=== PATIENT | female | born 1955 | race African-American/Black ===

== ENCOUNTER 2016-10-22 16:04 | Inpatient (IN) | payer MEDICARE, MEDICAID ==
[~2016-10-22] VITALS: Ht 157.5 cm; Wt 68.1 kg
[~2016-10-22 16:04] MED LIST: ACET-784 PO; ALBU6.7H IH; ALBU8.5H IH; ALBU8.5H3 IH; ALPR0.5T8 PO; DIGO125T PO; GABA-531 PO; HYDR-3971 PO; MONT10TA21 PO; PARO10TA71 PO; SIMV-259 PO; TIOT185 IH; TIZA4TAB4 PO; ZOLP10 PO
[2016-10-22] MEDS ORDERED: MORPHINE SULFATE 4 MG/ML SYRINGE IVP ONE ×2 (16:15→18:30)
[2016-10-22] MEDS ORDERED: NITROGLYCERIN 0.4 MG SUBLINGUAL TABLET #25 SL ONE (16:15)
[2016-10-22] MEDS ORDERED: ONDANSETRON HCL 4 MG/2 ML VIAL IVP ONE ×2 (16:15→18:30)
[2016-10-22] MEDS ORDERED: NITROGLYCERIN 2% (1 GM=INCH) PACKET TP ONE (16:15)
[2016-10-22] MEDS ORDERED: ASPIRIN 81 MG CHEWABLE TABLET PO ONE (16:15)
[2016-10-22 17:06] LABS: BASOPHILS # (AUTO) 0.02 K/uL (0.00-0.20); BASOPHILS % (AUTO) 0.3 % (0.0-2.0); EOSINOPHILS # (AUTO) 0.05 K/uL (0.00-0.70); EOSINOPHILS % (AUTO) 0.94 % (1.0-6.0); HEMOGLOBIN 11.4 g/dL (12.0-16.0); LYMPHOCYTES # (AUTO) 1.5 K/uL (1.0-4.8); LYMPHOCYTES % (AUTO) 25.8 % (22.0-44.0); MEAN CORPUSCULAR HGB CONC 33.4 G/dL (31.0-37.0); MEAN CORPUSCULAR VOLUME 96 fL (80-100); MONOCYTES # (AUTO) 0.6 K/uL (0.1-1.0); MONOCYTES % (AUTO) 9.8 % (2.0-9.0); NEUTROPHILS # (AUTO) 3.6 K/uL (1.8-7.7); NEUTROPHILS % (AUTO) 63.2 % (40.0-70.0); PLATELET COUNT (AUTO) 134 K/uL (150-450); RED BLOOD CELL COUNT(AUTO) 3.55 MIL/uL (4.00-5.20); WHITE BLOOD COUNT (AUTO) 5.7 K/uL (4.5-11.0)
[2016-10-22 17:31] LABS: ANION GAP 10 mmol/L (8-16); CARBON DIOXIDE 29 mmol/L (22-29); CHLORIDE 101 mmol/L (98-107); CREATININE 1.04 mg/dL (0.60-1.30); GLOMERULAR FILTR. RATE CALC > 60 mL/min (>60); POTASSIUM 3.9 mmol/L (3.5-5.1); SODIUM SERUM 140 mmol/L (136-145); UREA NITROGEN, BLOOD 10 mg/dL (7-18)
[2016-10-22 17:39] LABS: ALANINE AMINOTRANSFERASE 49 U/L (12-78); ASPARTATE AMINOTRANSFERASE 78 U/L (15-37); BILIRUBIN,TOTAL 0.8 mg/dL (0.1-1.0); TOTAL PROTEIN, SERUM 8.8 g/dL (6.4-8.2)
[2016-10-22 17:40] LABS: ALBUMIN 3.9 g/dL (3.4-5.0)
[2016-10-22] MEDS ORDERED: HEPARIN SODIUM 25000 UNITS/D5W 250 ML IV PRN ×2 (18:06→23:40)
[2016-10-22] MEDS ORDERED: HEPARIN SODIUM,PORCINE 5,000 UNITS/ML VIAL IVP ONE ×2 (18:15)
[2016-10-22] MEDS ORDERED: 0.9% SODIUM CHLORIDE 10 ML SYRINGE IVP PRN (18:15)
[2016-10-22] MEDS ORDERED: ACETAMINOPHEN 325 MG TABLET PO PRN ×2 (18:15→21:15)
[2016-10-22] MEDS ORDERED: HEPARIN SODIUM,PORCINE 5,000 UNITS/ML VIAL IVP PRN ×4 (18:15→23:45)
[2016-10-22] MEDS ORDERED: ONDANSETRON HCL 4 MG/2 ML VIAL IVP PRN ×2 (18:15→21:15)
[2016-10-22] MEDS ORDERED: SIMVASTATIN 10 MG TABLET PO ONE (18:15)
[2016-10-22 18:30] LABS: INR 1.1 (0.9-1.1); PROTHROMBIN TIME 11.4 SEC (9.4-11.6)
[2016-10-22] MEDS ORDERED: METOCLOPRAMIDE HCL 5 MG/ML 2 ML VIAL IVP ONE (18:30)
[2016-10-22 20:13] VITALS: BP 156/88
[2016-10-22] MEDS ORDERED: NITROGLYCERIN 2% (1 GM=INCH) PACKET TP PRN (21:15)
[2016-10-22] MEDS ORDERED: ALPRAZolam 0.5 MG TABLET PO PRN (21:15)
[2016-10-22] MEDS: ZOLPIDEM TARTRATE 10 MG TABLET PO SCH (22:24)
[2016-10-22] MEDS: SIMVASTATIN 10 MG TABLET PO SCH (22:24)
[2016-10-22] MEDS: OXYGEN THERAPY IH SCH (22:26)
[2016-10-22 22:29] VITALS: BP 136/65
[2016-10-22] MEDS: HYDROCODONE/ACETAMINOPHEN 10-325 MG TABLET PO PRN (22:34)
[2016-10-22 23:21] VITALS: BP 134/67
[2016-10-23] VITALS (19 sets, daily range): BP systolic 90–143; BP diastolic 37–75
[2016-10-23] MEDS: DiphenhydrAMINE HCL 25 MG CAPSULE PO PRN (01:25)
[2016-10-23] MEDS: HYDROCODONE/ACETAMINOPHEN 10-325 MG TABLET PO PRN ×4 (04:55→21:29)
[2016-10-23 06:44] LABS: BASOPHILS % (AUTO) 0.4 % (0.0-2.0); EOSINOPHILS % (AUTO) 1.2 % (1.0-6.0); HEMATOCRIT 31.1 % (36-46); HEMOGLOBIN 10.2 g/dL (12.0-16.0); LYMPHOCYTES % (AUTO) 31.1 % (22.0-44.0); MEAN CORPUSCULAR HEMOGLOBIN 31.6 pg (26.0-34.0); MEAN CORPUSCULAR HGB CONC 32.7 G/dL (31.0-37.0); MEAN CORPUSCULAR VOLUME 97 fL (80-100); MONOCYTES # (AUTO) 0.7 K/uL (0.1-1.0); NEUTROPHILS # (AUTO) 3.7 K/uL (1.8-7.7); NEUTROPHILS % (AUTO) 56.3 % (40.0-70.0); PLATELET COUNT (AUTO) 118 K/uL (150-450); RED BLOOD CELL COUNT(AUTO) 3.22 MIL/uL (4.00-5.20); WHITE BLOOD COUNT (AUTO) 6.6 K/uL (4.5-11.0)
[2016-10-23 06:49] LABS: INR 1.1 (0.9-1.1); PROTHROMBIN TIME 11.2 SEC (9.4-11.6)
[2016-10-23 07:22] LABS: ALANINE AMINOTRANSFERASE 45 U/L (12-78); ALBUMIN 3.7 g/dL (3.4-5.0); ANION GAP 6 mmol/L (8-16); ASPARTATE AMINOTRANSFERASE 57 U/L (15-37); BILIRUBIN,TOTAL 0.9 mg/dL (0.1-1.0); CALCIUM, TOTAL 8.5 mg/dL (8.8-10.5); CARBON DIOXIDE 31 mmol/L (22-29); CHLORIDE 98 mmol/L (98-107); CHOL/HDL RATIO 1.5 (3.9-5.7); CREATININE 1.03 mg/dL (0.60-1.30); GLOMERULAR FILTR. RATE CALC > 60 mL/min (>60); POTASSIUM 3.7 mmol/L (3.5-5.1); SODIUM SERUM 135 mmol/L (136-145); TOTAL PROTEIN, SERUM 8.3 g/dL (6.4-8.2); UREA NITROGEN, BLOOD 7 mg/dL (7-18)
[2016-10-23] MEDS ORDERED: POTASSIUM CHLORIDE 20 MEQ ER TABLET PO PRN (07:45)
[2016-10-23] MEDS ORDERED: MAGNESIUM SULFATE 4 GM/WATER 100 ML IV PRN (07:45)
[2016-10-23] MEDS ORDERED: MAGNESIUM OXIDE 400 MG TABLET PO PRN (07:45)
[2016-10-23] MEDS ORDERED: POTASSIUM CHL 10 MEQ/WATER 50 ML IV PRN (07:45)
[2016-10-23 07:48] LABS: HEMOGLOBIN A1C 5.1 % (4.5-6.2)
[2016-10-23] MEDS: GABAPENTIN 300 MG CAPSULE PO SCH ×2 (08:23→21:26)
[2016-10-23] MEDS: OXYGEN THERAPY IH SCH ×2 (08:23→21:31)
[2016-10-23] MEDS: PARoxetine HCL 10 MG TABLET PO SCH (08:23)
[2016-10-23] MEDS: TiZANidine HCL 4 MG TABLET PO SCH ×3 (10:09→21:26)
[2016-10-23] MEDS: ASPIRIN 325 MG TABLET PO SCH (10:10)
[2016-10-23] MEDS: DIGOXIN 125 MCG TABLET PO SCH (10:10)
[2016-10-23] MEDS ORDERED: 0.9% SODIUM CHLORIDE 10 ML SYRINGE IVP PRN (11:30)
[2016-10-23] MEDS ORDERED: LIDOCAINE HCL/PF 1% 30 ML VIAL ONE (11:45)
[2016-10-23] MEDS ORDERED: IOHEXOL 300 MG/ML 150 ML VIAL ONE (11:45)
[2016-10-23] MEDS ORDERED: SODIUM BICARBONATE 50 MEQ/50 ML VIAL ONE (11:45)
[2016-10-23] MEDS ORDERED: HEPARIN SODIUM 1000 UNITS/NS 1,000 ML ONE (11:46)
[2016-10-23] MEDS ORDERED: MIDAZOLAM HCL 2 MG/2 ML VIAL ONE (12:30)
[2016-10-23] MEDS ORDERED: FentaNYL CITRATE-PF 100 MCG/2 ML VIAL ONE (12:30)
[2016-10-23] MEDS ORDERED: PHENYLEPHRINE HCL 10 MG/ML 5 ML VIAL ONE (13:12)
[2016-10-23] MEDS: PHENYLEPHRINE 200 MG/D5%-WATER 250 ML IV PRN (13:25)
[2016-10-23] MEDS ORDERED: HEPARIN SODIUM 1000 UNITS/NS 500 ML ONE ×2 (13:26→13:46)
[2016-10-23] MEDS ORDERED: SODIUM CHLORIDE 0.9% 500 ML IV ONE ×2 (13:44→14:00)
[2016-10-23] MEDS ORDERED: HEPARIN SODIUM 1000 UNITS/NS 1,000 ML IARTER ONE (13:44)
[2016-10-23] MEDS ORDERED: LIDOCAINE 1% 30 ML/SOD BICARB 8.4% 4 ML SQ ONE (13:45)
[2016-10-23] MEDS ORDERED: IOHEXOL 300 MG/ML 150 ML VIAL IARTER ONE (13:45)
[2016-10-23 15:57] LABS: LACTIC ACID 0.5 mmol/L (0.4-2.0)
[2016-10-23 16:02] LABS: PROCALCITONIN (PCT) < 0.05 ng/mL (<0.50)
[2016-10-23] MEDS ORDERED: ZOLPIDEM TARTRATE 10 MG TABLET PO SCH ×2 (21:00)
[2016-10-23] MEDS: ZOLPIDEM TARTRATE 10 MG TABLET PO SCH (21:00)
[2016-10-23] MEDS: SIMVASTATIN 10 MG TABLET PO SCH (21:26)
[2016-10-24] VITALS (11 sets, daily range): BP systolic 80–139; BP diastolic 25–85
[2016-10-24] MEDS: ALPRAZolam 0.25 MG TABLET PO PRN ×2 (02:29→23:14)
[2016-10-24 05:56] LABS: BASOPHILS % (AUTO) 0.3 % (0.0-2.0); EOSINOPHILS % (AUTO) 1.6 % (1.0-6.0); HEMATOCRIT 26.9 % (36-46); HEMOGLOBIN 8.6 g/dL (12.0-16.0); LYMPHOCYTES # (AUTO) 1.8 K/uL (1.0-4.8); LYMPHOCYTES % (AUTO) 42.6 % (22.0-44.0); MEAN CORPUSCULAR HEMOGLOBIN 31.4 pg (26.0-34.0); MEAN CORPUSCULAR VOLUME 98 fL (80-100); MONOCYTES # (AUTO) 0.5 K/uL (0.1-1.0); MONOCYTES % (AUTO) 12.6 % (2.0-9.0); NEUTROPHILS # (AUTO) 1.9 K/uL (1.8-7.7); NEUTROPHILS % (AUTO) 42.9 % (40.0-70.0); PLATELET COUNT (AUTO) 98 K/uL (150-450); RED BLOOD CELL COUNT(AUTO) 2.74 MIL/uL (4.00-5.20); RED CELL DISTRIBUTION WIDTH 14.8 % (11.5-14.5); WHITE BLOOD COUNT (AUTO) 4.3 K/uL (4.5-11.0)
[2016-10-24] MEDS: ALBUTEROL SULFATE 2.5 MG/0.5 ML NEB SOLUTION NEB PRN ×3 (06:01→23:29)
[2016-10-24] MEDS: IPRATROPIUM BROMIDE 0.5 MG/2.5 ML NEB SOLUTION NEB PRN ×3 (06:01→23:29)
[2016-10-24 06:17] LABS: CALCIUM, TOTAL 7.8 mg/dL (8.8-10.5); CHOL/HDL RATIO 1.4 (3.9-5.7); CREATININE 1.12 mg/dL (0.60-1.30); MAGNESIUM 1.9 mg/dL (1.80-2.40); POTASSIUM 4.5 mmol/L (3.5-5.1)
[2016-10-24 06:50] LABS: HEMOGLOBIN A1C 4.9 % (4.5-6.2)
[2016-10-24] MEDS: OXYGEN THERAPY IH SCH ×2 (08:00→21:02)
[2016-10-24] MEDS: DIGOXIN 125 MCG TABLET PO SCH (08:13)
[2016-10-24] MEDS: HYDROCODONE/ACETAMINOPHEN 10-325 MG TABLET PO PRN ×3 (08:13→21:03)
[2016-10-24] MEDS: PARoxetine HCL 10 MG TABLET PO SCH (08:14)
[2016-10-24] MEDS: TiZANidine HCL 4 MG TABLET PO SCH ×3 (08:14→21:03)
[2016-10-24] MEDS: ASPIRIN 325 MG TABLET PO SCH (08:14)
[2016-10-24] MEDS: GABAPENTIN 300 MG CAPSULE PO SCH ×2 (08:14→21:03)
[2016-10-24] MEDS ORDERED: SODIUM CHLORIDE 0.9% 1,000 ML IV ONE (10:24)
[2016-10-24] MEDS ORDERED: SODIUM CHLORIDE 0.9% 500 ML IV ONE (10:30)
[2016-10-24] MEDS: SODIUM CHLORIDE 0.9% 1,000 ML IV SCH ×2 (11:30→21:06)
[2016-10-24] MEDS: PHENYLEPHRINE 200 MG/D5%-WATER 250 ML IV PRN (12:15)
[2016-10-24] MEDS: ALBUMIN HUMAN 25%-25GM/100ML 100 ML IV SCH ×2 (15:42→23:14)
[2016-10-24] MEDS: MIDODRINE HCL 5 MG TABLET PO SCH ×2 (15:43→21:03)
[2016-10-24] MEDS: ZOLPIDEM TARTRATE 5 MG TABLET PO SCH (21:03)
[2016-10-24] MEDS: SIMVASTATIN 10 MG TABLET PO SCH (21:03)
[2016-10-25] VITALS (8 sets, daily range): BP systolic 94–160; BP diastolic 61–104
[2016-10-25] MEDS: SODIUM CHLORIDE 0.9% 1,000 ML IV SCH ×2 (04:10→11:30)
[2016-10-25] MEDS: HYDROCODONE/ACETAMINOPHEN 10-325 MG TABLET PO PRN ×3 (05:19→23:24)
[2016-10-25] MEDS: ALBUTEROL SULFATE 2.5 MG/0.5 ML NEB SOLUTION NEB PRN ×3 (05:25→12:44)
[2016-10-25] MEDS: IPRATROPIUM BROMIDE 0.5 MG/2.5 ML NEB SOLUTION NEB PRN ×3 (05:25→12:44)
[2016-10-25 05:29] LABS: ANION GAP 3 mmol/L (8-16); CALCIUM, TOTAL 7.9 mg/dL (8.8-10.5); CARBON DIOXIDE 31 mmol/L (22-29); CHLORIDE 103 mmol/L (98-107); CREATININE 0.81 mg/dL (0.60-1.30); GLOMERULAR FILTR. RATE CALC > 60 mL/min (>60); POTASSIUM 4.1 mmol/L (3.5-5.1); SODIUM SERUM 137 mmol/L (136-145); UREA NITROGEN, BLOOD 7 mg/dL (7-18)
[2016-10-25 06:57] LABS: GLUCOSE,POINT OF CARE 110 MG/DL (70-110)
[2016-10-25 07:14] LABS: BASOPHILS # (AUTO) 0.01 K/uL (0.00-0.20); BASOPHILS % (AUTO) 0.3 % (0.0-2.0); EOSINOPHILS # (AUTO) 0.06 K/uL (0.00-0.70); EOSINOPHILS % (AUTO) 1.57 % (1.0-6.0); HEMATOCRIT 24.3 % (36-46); LYMPHOCYTES # (AUTO) 1.3 K/uL (1.0-4.8); LYMPHOCYTES % (AUTO) 33.2 % (22.0-44.0); MEAN CORPUSCULAR HEMOGLOBIN 32.1 pg (26.0-34.0); MEAN CORPUSCULAR HGB CONC 32.9 G/dL (31.0-37.0); MEAN CORPUSCULAR VOLUME 97 fL (80-100); MONOCYTES # (AUTO) 0.4 K/uL (0.1-1.0); MONOCYTES % (AUTO) 11.3 % (2.0-9.0); NEUTROPHILS # (AUTO) 2.1 K/uL (1.8-7.7); NEUTROPHILS % (AUTO) 53.7 % (40.0-70.0); PLATELET COUNT (AUTO) 85 K/uL (150-450); RED BLOOD CELL COUNT(AUTO) 2.49 MIL/uL (4.00-5.20); RED CELL DISTRIBUTION WIDTH 14.4 % (11.5-14.5); WHITE BLOOD COUNT (AUTO) 3.8 K/uL (4.5-11.0)
[2016-10-25] MEDS: ALBUMIN HUMAN 25%-25GM/100ML 100 ML IV SCH ×3 (08:21→23:06)
[2016-10-25] MEDS: OXYGEN THERAPY IH SCH ×2 (08:21→19:03)
[2016-10-25] MEDS: MIDODRINE HCL 5 MG TABLET PO SCH ×3 (09:00→20:37)
[2016-10-25] MEDS: DIGOXIN 125 MCG TABLET PO SCH (09:07)
[2016-10-25] MEDS: GABAPENTIN 300 MG CAPSULE PO SCH ×2 (09:08→20:41)
[2016-10-25] MEDS: PARoxetine HCL 10 MG TABLET PO SCH (09:08)
[2016-10-25] MEDS: TiZANidine HCL 4 MG TABLET PO SCH ×3 (09:09→20:41)
[2016-10-25] MEDS: ASPIRIN 325 MG TABLET PO SCH (09:14)
[2016-10-25] MEDS ORDERED: CefTRIAXone SODIUM 1 GM/VIAL IM SCH (09:30)
[2016-10-25] MEDS: LEVOFLOXACIN 500 MG TABLET PO SCH (10:21)
[2016-10-25] MEDS: CefTRIAXone 1 GM/DEXTROSE 50 ML IV SCH (11:15)
[2016-10-25 11:16] LABS: GLUCOSE,POINT OF CARE 116 MG/DL (70-110)
[2016-10-25] MEDS: MAGNESIUM SULFATE 2 GM in DEXTROSE 5%-WATER 50 ML IV PRN (17:13)
[2016-10-25] MEDS: ALBUTEROL SULFATE 2.5 MG/0.5 ML NEB SOLUTION NEB SCH ×2 (19:00→22:33)
[2016-10-25] MEDS: IPRATROPIUM BROMIDE 0.5 MG/2.5 ML NEB SOLUTION NEB SCH ×2 (19:00→22:33)
[2016-10-25] MEDS: ZOLPIDEM TARTRATE 5 MG TABLET PO SCH (20:41)
[2016-10-25] MEDS: SIMVASTATIN 10 MG TABLET PO SCH (20:41)
[2016-10-26] VITALS (9 sets, daily range): BP systolic 93–169; BP diastolic 44–114
[2016-10-26] MEDS: IPRATROPIUM BROMIDE 0.5 MG/2.5 ML NEB SOLUTION NEB SCH ×6 (02:46→23:14)
[2016-10-26] MEDS: ALBUTEROL SULFATE 2.5 MG/0.5 ML NEB SOLUTION NEB SCH ×6 (02:46→23:15)
[2016-10-26 06:00] LABS: HEMATOCRIT 21.9 % (36-46); MEAN CORPUSCULAR HEMOGLOBIN 31.2 pg (26.0-34.0); MEAN CORPUSCULAR HGB CONC 31.8 G/dL (31.0-37.0); MEAN CORPUSCULAR VOLUME 98 fL (80-100); PLATELET COUNT (AUTO) 75 K/uL (150-450); RED BLOOD CELL COUNT(AUTO) 2.23 MIL/uL (4.00-5.20); RED CELL DISTRIBUTION WIDTH 14.6 % (11.5-14.5); WHITE BLOOD COUNT (AUTO) 5.3 K/uL (4.5-11.0)
[2016-10-26 06:05] LABS: ANION GAP 4 mmol/L (8-16); CALCIUM, TOTAL 8.5 mg/dL (8.8-10.5); CARBON DIOXIDE 34 mmol/L (22-29); CHLORIDE 98 mmol/L (98-107); CREATININE 0.84 mg/dL (0.60-1.30); GLOMERULAR FILTR. RATE CALC > 60 mL/min (>60); POTASSIUM 3.7 mmol/L (3.5-5.1); SODIUM SERUM 136 mmol/L (136-145); UREA NITROGEN, BLOOD 4 mg/dL (7-18)
[2016-10-26] MEDS: HYDROCODONE/ACETAMINOPHEN 10-325 MG TABLET PO PRN ×3 (06:23→22:10)
[2016-10-26] MEDS: ALBUMIN HUMAN 25%-25GM/100ML 100 ML IV SCH ×3 (06:24→22:08)
[2016-10-26] MEDS: MAGNESIUM SULFATE 2 GM in DEXTROSE 5%-WATER 50 ML IV PRN (08:02)
[2016-10-26] MEDS: ASPIRIN 325 MG TABLET PO SCH (08:23)
[2016-10-26] MEDS: DIGOXIN 125 MCG TABLET PO SCH (08:23)
[2016-10-26] MEDS: LEVOFLOXACIN 500 MG TABLET PO SCH (08:23)
[2016-10-26] MEDS: GABAPENTIN 300 MG CAPSULE PO SCH ×2 (08:24→20:33)
[2016-10-26] MEDS: PARoxetine HCL 10 MG TABLET PO SCH (08:24)
[2016-10-26] MEDS: TiZANidine HCL 4 MG TABLET PO SCH ×3 (08:26→20:33)
[2016-10-26] MEDS: ALPRAZolam 0.25 MG TABLET PO PRN (08:27)
[2016-10-26] MEDS: MIDODRINE HCL 5 MG TABLET PO SCH ×3 (09:00→20:33)
[2016-10-26] MEDS: CefTRIAXone 1 GM/DEXTROSE 50 ML IV SCH (11:11)
[2016-10-26] MEDS: MethylPREDNISolone SOD SUCC 125 MG/2 ML VIAL IVP SCH ×3 (11:11→23:25)
[2016-10-26 11:12] LABS: BASOPHILS % (MANUAL) 1 % (0-2); EOSINOPHILS % (MANUAL) 1 % (1-6); LYMPHOCYTES % (MANUAL) 17 % (22-44); RBC MORPHOLOGY COMMENT NORMAL RBC MORPH; TOTAL CELLS COUNTED 100
[2016-10-26] MEDS: OXYGEN THERAPY IH SCH ×2 (11:33→19:24)
[2016-10-26 20:51] LABS: EOSINOPHILS % (AUTO) 0 % (1.0-6.0); HEMATOCRIT 23.6 % (36-46); HEMOGLOBIN 7.5 g/dL (12.0-16.0); LYMPHOCYTES # (AUTO) 0.4 K/uL (1.0-4.8); LYMPHOCYTES % (AUTO) 7.1 % (22.0-44.0); MEAN CORPUSCULAR HEMOGLOBIN 31.4 pg (26.0-34.0); MEAN CORPUSCULAR HGB CONC 31.8 G/dL (31.0-37.0); MEAN CORPUSCULAR VOLUME 99 fL (80-100); MONOCYTES # (AUTO) 0.2 K/uL (0.1-1.0); MONOCYTES % (AUTO) 2.8 % (2.0-9.0); PLATELET COUNT (AUTO) 83 K/uL (150-450); RED BLOOD CELL COUNT(AUTO) 2.38 MIL/uL (4.00-5.20); RED CELL DISTRIBUTION WIDTH 14.5 % (11.5-14.5); WHITE BLOOD COUNT (AUTO) 5.6 K/uL (4.5-11.0)
[2016-10-26 20:52] LABS: NEUTROPHILS % (AUTO) 90.1 % (40.0-70.0)
[2016-10-26 21:23] LABS: RBC MORPHOLOGY COMMENT ABNORMAL RBC MORPH
[2016-10-26] MEDS: ZOLPIDEM TARTRATE 5 MG TABLET PO SCH (23:25)
[2016-10-26] MEDS: SIMVASTATIN 10 MG TABLET PO SCH (23:25)
[2016-10-27] VITALS (7 sets, daily range): BP systolic 128–151; BP diastolic 59–94
[2016-10-27] MEDS: ALBUTEROL SULFATE 2.5 MG/0.5 ML NEB SOLUTION NEB SCH ×6 (03:20→23:24)
[2016-10-27] MEDS: IPRATROPIUM BROMIDE 0.5 MG/2.5 ML NEB SOLUTION NEB SCH ×6 (03:20→23:24)
[2016-10-27] MEDS: HYDROCODONE/ACETAMINOPHEN 10-325 MG TABLET PO PRN ×3 (05:24→17:51)
[2016-10-27] MEDS: MethylPREDNISolone SOD SUCC 125 MG/2 ML VIAL IVP SCH ×2 (05:30→11:53)
[2016-10-27] MEDS: ALBUMIN HUMAN 25%-25GM/100ML 100 ML IV SCH (06:37)
[2016-10-27 06:54] LABS: BASOPHILS % (AUTO) 0.1 % (0.0-2.0); EOSINOPHILS % (AUTO) 0 % (1.0-6.0); HEMATOCRIT 22.5 % (36-46); HEMOGLOBIN 7.2 g/dL (12.0-16.0); LYMPHOCYTES # (AUTO) 0.6 K/uL (1.0-4.8); LYMPHOCYTES % (AUTO) 9.1 % (22.0-44.0); MEAN CORPUSCULAR HEMOGLOBIN 31.4 pg (26.0-34.0); MEAN CORPUSCULAR HGB CONC 31.9 G/dL (31.0-37.0); MEAN CORPUSCULAR VOLUME 98 fL (80-100); MONOCYTES # (AUTO) 0.3 K/uL (0.1-1.0); MONOCYTES % (AUTO) 4.8 % (2.0-9.0); NEUTROPHILS # (AUTO) 5.9 K/uL (1.8-7.7); PLATELET COUNT (AUTO) 91 K/uL (150-450); RED CELL DISTRIBUTION WIDTH 14.7 % (11.5-14.5); WHITE BLOOD COUNT (AUTO) 6.9 K/uL (4.5-11.0)
[2016-10-27 07:06] LABS: ANION GAP 8 mmol/L (8-16); CALCIUM, TOTAL 9.1 mg/dL (8.8-10.5); CARBON DIOXIDE 32 mmol/L (22-29); CHLORIDE 95 mmol/L (98-107); CREATININE 0.85 mg/dL (0.60-1.30); GLOMERULAR FILTR. RATE CALC > 60 mL/min (>60); POTASSIUM 3.8 mmol/L (3.5-5.1); SODIUM SERUM 135 mmol/L (136-145); UREA NITROGEN, BLOOD 10 mg/dL (7-18)
[2016-10-27] MEDS: MIDODRINE HCL 5 MG TABLET PO SCH ×3 (08:14→21:00)
[2016-10-27] MEDS: PARoxetine HCL 10 MG TABLET PO SCH (08:14)
[2016-10-27] MEDS: GABAPENTIN 300 MG CAPSULE PO SCH ×2 (08:14→21:19)
[2016-10-27] MEDS: OXYGEN THERAPY IH SCH ×2 (08:14→19:25)
[2016-10-27] MEDS: LEVOFLOXACIN 500 MG TABLET PO SCH (08:14)
[2016-10-27] MEDS: TiZANidine HCL 4 MG TABLET PO SCH ×3 (08:14→21:19)
[2016-10-27] MEDS: ASPIRIN 325 MG TABLET PO SCH (08:14)
[2016-10-27] MEDS: DIGOXIN 125 MCG TABLET PO SCH (08:14)
[2016-10-27] MEDS: CefTRIAXone 1 GM/DEXTROSE 50 ML IV SCH (11:54)
[2016-10-27] MEDS: MethylPREDNISolone SOD SUCC 40 MG/ML VIAL IVP SCH ×2 (17:51→23:32)
[2016-10-27] MEDS: ZOLPIDEM TARTRATE 5 MG TABLET PO SCH (21:19)
[2016-10-27] MEDS: SIMVASTATIN 10 MG TABLET PO SCH (21:19)
[2016-10-27] MEDS: DiphenhydrAMINE HCL 25 MG CAPSULE PO PRN (23:42)
[2016-10-28] VITALS (7 sets, daily range): BP systolic 100–137; BP diastolic 64–96
[2016-10-28] MEDS: ALBUTEROL SULFATE 2.5 MG/0.5 ML NEB SOLUTION NEB SCH ×3 (02:37→10:57)
[2016-10-28] MEDS: IPRATROPIUM BROMIDE 0.5 MG/2.5 ML NEB SOLUTION NEB SCH ×7 (02:37→22:57)
[2016-10-28] MEDS: MethylPREDNISolone SOD SUCC 40 MG/ML VIAL IVP SCH ×3 (05:56→16:59)
[2016-10-28] MEDS: TiZANidine HCL 4 MG TABLET PO SCH ×3 (08:17→20:24)
[2016-10-28] MEDS: OXYGEN THERAPY IH SCH ×2 (08:17→20:22)
[2016-10-28] MEDS: ASPIRIN 325 MG TABLET PO SCH (08:17)
[2016-10-28] MEDS: DIGOXIN 125 MCG TABLET PO SCH (08:18)
[2016-10-28] MEDS: GABAPENTIN 300 MG CAPSULE PO SCH ×2 (08:18→20:23)
[2016-10-28] MEDS: LEVOFLOXACIN 500 MG TABLET PO SCH (08:18)
[2016-10-28] MEDS: PARoxetine HCL 10 MG TABLET PO SCH (08:18)
[2016-10-28] MEDS: MIDODRINE HCL 5 MG TABLET PO SCH ×3 (09:00→20:24)
[2016-10-28] MEDS: DiphenhydrAMINE HCL 25 MG CAPSULE PO PRN (09:34)
[2016-10-28] MEDS: CefTRIAXone 1 GM/DEXTROSE 50 ML IV SCH (11:28)
[2016-10-28] MEDS ORDERED: LEVALBUTEROL HCL 1.25 MG/0.5 ML NEB SOLUTION NEB PRN (11:45)
[2016-10-28] MEDS: PHENYLEPHRINE/PROMETH/CODEINE 5 ML ORAL.SYG PO PRN ×2 (12:13→23:41)
[2016-10-28] MEDS ORDERED: ALPRAZolam 0.25 MG TABLET PO PRN (14:45)
[2016-10-28] MEDS: LEVALBUTEROL HCL 1.25 MG/0.5 ML NEB SOLUTION NEB SCH ×3 (15:08→22:56)
[2016-10-28] MEDS: AMIODARONE HCL 200 MG TABLET PO SCH ×3 (18:38→20:24)
[2016-10-28] MEDS: PredniSONE 20 MG TABLET PO SCH (20:23)
[2016-10-28] MEDS: ZOLPIDEM TARTRATE 5 MG TABLET PO SCH (20:23)
[2016-10-28] MEDS: SIMVASTATIN 10 MG TABLET PO SCH (20:24)
[2016-10-29] MEDS: LEVALBUTEROL HCL 1.25 MG/0.5 ML NEB SOLUTION NEB SCH ×4 (03:09→15:44)
[2016-10-29] MEDS: IPRATROPIUM BROMIDE 0.5 MG/2.5 ML NEB SOLUTION NEB SCH ×4 (03:09→15:44)
[2016-10-29 05:12] VITALS: BP 116/72
[2016-10-29] MEDS: OXYGEN THERAPY IH SCH (06:59)
[2016-10-29 07:30] VITALS: BP 144/76
[2016-10-29] MEDS: PredniSONE 20 MG TABLET PO SCH (08:01)
[2016-10-29] MEDS: GABAPENTIN 300 MG CAPSULE PO SCH (08:02)
[2016-10-29] MEDS: DIGOXIN 125 MCG TABLET PO SCH (08:02)
[2016-10-29] MEDS: LEVOFLOXACIN 500 MG TABLET PO SCH (08:02)
[2016-10-29] MEDS: MIDODRINE HCL 5 MG TABLET PO SCH ×3 (08:03→15:23)
[2016-10-29] MEDS: TiZANidine HCL 4 MG TABLET PO SCH ×2 (08:03→15:23)
[2016-10-29] MEDS: AMIODARONE HCL 200 MG TABLET PO SCH (08:03)
[2016-10-29] MEDS: PARoxetine HCL 10 MG TABLET PO SCH (08:03)
[2016-10-29 10:20] VITALS: BP 90/43
[2016-10-29 11:00] VITALS: BP 96/53
[2016-10-29] MEDS ORDERED: SODIUM CHLORIDE 0.9% 100 ML ONE (11:00)
[2016-10-29 11:33] VITALS: BP 113/72
[2016-10-29] MEDS: HYDROCODONE/ACETAMINOPHEN 10-325 MG TABLET PO PRN (12:37)
[2016-10-29] MEDS: CefTRIAXone 1 GM/DEXTROSE 50 ML IV SCH (12:37)
[2016-10-29] MEDS: ASPIRIN 325 MG TABLET PO SCH (14:23)
[2016-10-29] MEDS ORDERED: ASA3 PO (14:32)
[2016-10-29] MEDS ORDERED: AMIO200T44 PO (14:32)
[2016-10-29] MEDS ORDERED: CEFT1PB IV (14:34)
[2016-10-29] MEDS ORDERED: IPRNEB IH (14:35)
[2016-10-29] MEDS ORDERED: XUD IH (14:36)
[2016-10-29] MEDS ORDERED: LEVO500 PO (14:36)
[2016-10-29] MEDS ORDERED: MIDO5 PO (14:37)
[2016-10-29] MEDS ORDERED: PRED20 PO (14:37)
[2016-10-29] MEDS ORDERED: PARO10TA89 PO (14:37)
[2016-10-29] MEDS ORDERED: ACET-2247 PO (14:38)
[2016-10-29 15:07] VITALS: BP 116/63
== END 2016-10-29 18:45 | DRG 280 ==
LOC: EMS 16:07 → 5N 18:17 → ICU 10-23 14:35 → 5S 10-26 15:15
PROVIDERS: ADMIT Family Medicine; ATTEND Family Medicine
PROC: 4A023N7 Measurement of Cardiac Sampling and Pressure, Left Heart, Percutaneous Approach (ICD-10-PCS; principal; 2016-10-23)
PROC: B2151ZZ Fluoroscopy of Left Heart using Low Osmolar Contrast (ICD-10-PCS; 2016-10-23)
PROC: B2111ZZ Fluoroscopy of Multiple Coronary Arteries using Low Osmolar Contrast (ICD-10-PCS; 2016-10-23)
PROC: 06HM33Z Insertion of Infusion Device into Right Femoral Vein, Percutaneous Approach (ICD-10-PCS; 2016-10-23)
DX: I21.4 Non-ST elevation (NSTEMI) myocardial infarction (principal); R57.1 Hypovolemic shock; J44.1 Chronic obstructive pulmonary disease with (acute) exacerbation; I24.9 Acute ischemic heart disease, unspecified; I95.9 Hypotension, unspecified; E78.5 Hyperlipidemia, unspecified; F41.9 Anxiety disorder, unspecified; I48.91 Unspecified atrial fibrillation; G89.4 Chronic pain syndrome; M19.90 Unspecified osteoarthritis, unspecified site; F19.10 Other psychoactive substance abuse, uncomplicated; Z53.29 Procedure and treatment not carried out because of patient's decision for other reasons; F17.210 Nicotine dependence, cigarettes, uncomplicated; I11.0 Hypertensive heart disease with heart failure; B19.20 Unspecified viral hepatitis C without hepatic coma; D64.9 Anemia, unspecified; D69.6 Thrombocytopenia, unspecified; K74.60 Unspecified cirrhosis of liver; I50.9 Heart failure, unspecified; I25.10 Atherosclerotic heart disease of native coronary artery without angina pectoris; Z79.2 Long term (current) use of antibiotics; Z79.82 Long term (current) use of aspirin; Z91.041 Radiographic dye allergy status; Z79.01 Long term (current) use of anticoagulants
CPT/HCPCS: 76700; 82271; 82962; 83036; 83605; 83735; 84145; 85007; 93005; 93306; 94640; 96374; 96375; 96376; 97163; 97165; 97530; 99285; J0696; J1644; J2250; J2270; J2370; J2405; J2920; J2930; J3010; J3475; J3490; J7030; J7050; J7060; P9046; Q9967

== ENCOUNTER 2017-06-01 12:15 | Inpatient (IN) | payer MEDICAID, MEDICARE ==
[~2017-06-01] VITALS: Ht 157.5 cm; Wt 64.4 kg
[~2017-06-01 12:15] MED LIST changes: +ACET-2247 PO; -ALBU6.7H IH; -ALBU8.5H IH; +ALBU8.5H8 IH; +AMIO200T44 PO; +ASPI-989 PO; +CEFT1PB IV; +IPRNEB NEB; +LEVO500 PO; +MIDO5TAB23 PO; +PARO10TA89 PO; +PRED20 PO; +XUD NEB; -ZOLP10 PO; +ZOLP10TA7 PO
[2017-06-01 13:51] LABS: INFLUENZA TYPE A NEGATIVE FOR TYPE A (NEGATIVE)
[2017-06-01 13:52] LABS: INFLUENZA TYPE B NEGATIVE FOR TYPE B (NEGATIVE)
[2017-06-01] MEDS ORDERED: PredniSONE 20 MG TABLET PO ONE (19:15)
[2017-06-01] MEDS ORDERED: IPRATROPIUM BROMIDE 0.5 MG/2.5 ML NEB SOLUTION NEB ONE ×2 (19:15→20:15)
[2017-06-01] MEDS ORDERED: KETOROLAC TROMETHAMINE 30 MG/ML VIAL IVP ONE (19:15)
[2017-06-01] MEDS ORDERED: ALBUTEROL SULFATE 2.5 MG/0.5 ML NEB SOLUTION NEB ONE (19:15)
[2017-06-01 19:30] LABS: ANION GAP 9 mmol/L (8-16); CALCIUM, TOTAL 9.4 mg/dL (8.8-10.5); CARBON DIOXIDE 29 mmol/L (22-29); CHLORIDE 93 mmol/L (98-107); CREATININE 0.89 mg/dL (0.60-1.30); GLOMERULAR FILTR. RATE CALC > 60 mL/min (>60); GLUCOSE,RANDOM 102 mg/dL (70-110); POTASSIUM 3.1 mmol/L (3.5-5.1); SODIUM SERUM 131 mmol/L (136-145); UREA NITROGEN, BLOOD 14 mg/dL (7-18)
[2017-06-01 19:36] LABS: ALANINE AMINOTRANSFERASE 28 U/L (12-78); ALBUMIN 3.2 g/dL (3.4-5.0); ALKALINE PHOSPHATASE 88 U/L (46-116); ASPARTATE AMINOTRANSFERASE 36 U/L (15-37); BILIRUBIN,TOTAL 1.7 mg/dL (0.1-1.0); TOTAL PROTEIN, SERUM 8.6 g/dL (6.4-8.2)
[2017-06-01 19:38] LABS: BASOPHILS # (AUTO) 0.04 K/uL (0.00-0.20); BASOPHILS % (AUTO) 0.3 % (0.0-2.0); EOSINOPHILS # (AUTO) 0.02 K/uL (0.00-0.70); EOSINOPHILS % (AUTO) 0.13 % (1.0-6.0); HEMATOCRIT 33.2 % (36-46); HEMOGLOBIN 11.1 g/dL (12.0-16.0); LYMPHOCYTES # (AUTO) 2.3 K/uL (1.0-4.8); LYMPHOCYTES % (AUTO) 14.6 % (22.0-44.0); MEAN CORPUSCULAR HEMOGLOBIN 32.3 pg (26.0-34.0); MEAN CORPUSCULAR HGB CONC 33.4 G/dL (31.0-37.0); MEAN CORPUSCULAR VOLUME 97 fL (80-100); MONOCYTES % (AUTO) 19.5 % (2.0-9.0); NEUTROPHILS # (AUTO) 10.1 K/uL (1.8-7.7); NEUTROPHILS % (AUTO) 65.5 % (40.0-70.0); PLATELET COUNT (AUTO) 208 K/uL (150-450); RED BLOOD CELL COUNT(AUTO) 3.44 MIL/uL (4.00-5.20); RED CELL DISTRIBUTION WIDTH 12.8 % (11.5-14.5)
[2017-06-01] MEDS ORDERED: 0.9% SODIUM CHLORIDE 15 ML NEB SOLUTION NEB ONE (20:06)
[2017-06-01] MEDS ORDERED: ALBUTEROL SULFATE 5 MG/ML 20 ML NEB SOLN [BULK] NEB ONE (20:15)
[2017-06-01] MEDS ORDERED: SODIUM CHLORIDE 0.9% 1,000 ML IV ONE ×3 (20:42→22:30)
[2017-06-01] MEDS ORDERED: METOCLOPRAMIDE HCL 5 MG/ML 2 ML VIAL IVP ONE (21:15)
[2017-06-01] MEDS ORDERED: DiphenhydrAMINE HCL 50 MG/ML VIAL IVP ONE (21:15)
[2017-06-01] MEDS ORDERED: LEVOFLOXACIN 500 MG/D5% WATER 100 ML IV ONE (21:45)
[2017-06-01] MEDS ORDERED: ONDANSETRON HCL 4 MG/2 ML VIAL IVP PRN (21:45)
[2017-06-01] MEDS ORDERED: ACETAMINOPHEN 325 MG TABLET PO PRN (21:45)
[2017-06-01] MEDS ORDERED: OxyCODONE HCL/ACETAMINOPHEN 5-325 MG TABLET PO PRN ×2 (21:45)
[2017-06-01] MEDS ORDERED: MethylPREDNISolone SOD SUCC 125 MG/2 ML VIAL IVP ONE ×2 (21:45)
[2017-06-01] MEDS ORDERED: 0.9% SODIUM CHLORIDE 10 ML SYRINGE IVP PRN (21:45)
[2017-06-02 01:21] LABS: APPEARANCE,URINE CLOUDY (CLEAR); BILIRUBIN,URINE NEGATIVE (NEGATIVE); GLUCOSE, URINE (UA) NEGATIVE (NEGATIVE); KETONES,URINE NEGATIVE (NEGATIVE); LEUKOCYTE ESTERASE ,URINE SMALL (NEGATIVE); NITRATE,URINE NEGATIVE (NEGATIVE); OCCULT BLOOD,URINE NEGATIVE (NEGATIVE); PROTEIN,URINE TRACE (NEGATIVE)
[2017-06-02 01:28] LABS: AMPHET/METH SCREEN,URINE NEGATIVE (NEGATIVE); BARBITURATE SCREEN, URINE NEGATIVE (NEGATIVE); BENZODIAZEPINES SCREEN,URINE NEGATIVE (NEGATIVE); CANNABINOID SCREEN,URINE POSITIVE (NEGATIVE); COCAINE SCREEN,URINE NEGATIVE (NEGATIVE); METHADONE SCREEN, URINE NEGATIVE (NEGATIVE); OPIATE SCREEN,URINE POSITIVE (NEGATIVE)
[2017-06-02 01:32] LABS: PHENCYCLIDINE SCREEN,URINE NEGATIVE (NEGATIVE)
[2017-06-02 01:35] LABS: BACTERIA,URINE Few /HPF (None Seen); RBC,URINE 0-2 /HPF (0-2); SQUAMOUS EPITHELIAL CELL,UR Few /LPF (None Seen)
[2017-06-02] MEDS: ALBUTEROL SULFATE 2.5 MG/0.5 ML NEB SOLUTION NEB SCH ×2 (02:05→07:51)
[2017-06-02] MEDS: IPRATROPIUM BROMIDE 0.5 MG/2.5 ML NEB SOLUTION NEB SCH ×2 (02:05→07:51)
[2017-06-02 09:14] LABS: BASOPHILS # (AUTO) 0.03 K/uL (0.00-0.20); BASOPHILS % (AUTO) 0.2 % (0.0-2.0); EOSINOPHILS % (AUTO) 0 % (1.0-6.0); HEMATOCRIT 27.6 % (36-46); HEMOGLOBIN 9.3 g/dL (12.0-16.0); LYMPHOCYTES # (AUTO) 0.6 K/uL (1.0-4.8); LYMPHOCYTES % (AUTO) 4.8 % (22.0-44.0); MEAN CORPUSCULAR HEMOGLOBIN 32.1 pg (26.0-34.0); MEAN CORPUSCULAR HGB CONC 33.8 G/dL (31.0-37.0); MEAN CORPUSCULAR VOLUME 95 fL (80-100); MONOCYTES # (AUTO) 0.5 K/uL (0.1-1.0); MONOCYTES % (AUTO) 4.4 % (2.0-9.0); NEUTROPHILS # (AUTO) 10.9 K/uL (1.8-7.7); PLATELET COUNT (AUTO) 193 K/uL (150-450); RED BLOOD CELL COUNT(AUTO) 2.91 MIL/uL (4.00-5.20); RED CELL DISTRIBUTION WIDTH 12.9 % (11.5-14.5)
[2017-06-02 09:15] LABS: NEUTROPHILS % (AUTO) 90.6 % (40.0-70.0)
[2017-06-02 09:42] LABS: ALANINE AMINOTRANSFERASE 22 U/L (12-78); ALBUMIN 2.6 g/dL (3.4-5.0); ALKALINE PHOSPHATASE 77 U/L (46-116); ANION GAP 13 mmol/L (8-16); ASPARTATE AMINOTRANSFERASE 22 U/L (15-37); BILIRUBIN,TOTAL 0.7 mg/dL (0.1-1.0); CALCIUM, TOTAL 8.2 mg/dL (8.8-10.5); CARBON DIOXIDE 22 mmol/L (22-29); CHLORIDE 97 mmol/L (98-107); CREATININE 1.06 mg/dL (0.60-1.30); GLOMERULAR FILTR. RATE CALC > 60 mL/min (>60); GLUCOSE,RANDOM 237 mg/dL (70-110); SODIUM SERUM 132 mmol/L (136-145); TOTAL PROTEIN, SERUM 7.1 g/dL (6.4-8.2); UREA NITROGEN, BLOOD 18 mg/dL (7-18)
[2017-06-02 10:02] LABS: POTASSIUM 2.6 mmol/L (3.5-5.1)
[2017-06-02 10:03] LABS: LACTIC ACID 3.5 mmol/L (0.4-2.0)
[2017-06-02] MEDS ORDERED: POTASSIUM CHLORIDE 20 MEQ ER TABLET PO ONE (11:15)
[2017-06-02 12:04] VITALS: BP 107/89
[2017-06-02] MEDS: HYDROCODONE/ACETAMINOPHEN 5-325 MG TABLET PO PRN ×2 (14:20→20:23)
[2017-06-02] MEDS: PIPERACILLIN/TAZO 3.375 GM/D5W 50 ML IV SCH (15:33)
[2017-06-02 16:14] VITALS: BP 90/61
[2017-06-02] MEDS: ACETAMINOPHEN 325 MG TABLET PO PRN (17:47)
[2017-06-02] MEDS: SIMVASTATIN 10 MG TABLET PO SCH (20:23)
[2017-06-02] MEDS: GABAPENTIN 300 MG CAPSULE PO SCH (20:23)
[2017-06-02 20:30] VITALS: BP 113/63
[2017-06-02] MEDS ORDERED: SODIUM CHLORIDE 0.9% 500 ML IV ONE (21:45)
[2017-06-02] MEDS: ALBUTEROL SULFATE 2.5 MG/0.5 ML NEB SOLUTION NEB PRN (22:34)
[2017-06-02] MEDS: IPRATROPIUM BROMIDE 0.5 MG/2.5 ML NEB SOLUTION NEB PRN (22:34)
[2017-06-02 23:41] VITALS: BP 107/58
[2017-06-03] VITALS (7 sets, daily range): BP systolic 98–132; BP diastolic 51–61
[2017-06-03] MEDS: HYDROCODONE/ACETAMINOPHEN 5-325 MG TABLET PO PRN ×2 (00:44→08:51)
[2017-06-03] MEDS: PIPERACILLIN/TAZO 3.375 GM/D5W 50 ML IV SCH ×5 (00:45→20:17)
[2017-06-03] MEDS ORDERED: INFLUENZA VIRUS VACCINE QVS 2017-18 (3YR+)/PF 60 MCG/0.5 ML SYRINGE IM ONE (03:00)
[2017-06-03] MEDS ORDERED: PNEUMOCOCCAL VACCINE POLYVALENT 0.5 ML VIAL [PPSV23] IM ONE (03:00)
[2017-06-03 07:24] LABS: ANION GAP 9 mmol/L (8-16); CALCIUM, TOTAL 8.6 mg/dL (8.8-10.5); CARBON DIOXIDE 27 mmol/L (22-29); CHLORIDE 100 mmol/L (98-107); CREATININE 1.06 mg/dL (0.60-1.30); GLOMERULAR FILTR. RATE CALC > 60 mL/min (>60); GLUCOSE,RANDOM 100 mg/dL (70-110); SODIUM SERUM 136 mmol/L (136-145); UREA NITROGEN, BLOOD 19 mg/dL (7-18)
[2017-06-03 07:34] LABS: BASOPHILS # (AUTO) 0.01 K/uL (0.00-0.20); EOSINOPHILS # (AUTO) 0.01 K/uL (0.00-0.70); EOSINOPHILS % (AUTO) 0.07 % (1.0-6.0); HEMATOCRIT 29.1 % (36-46); HEMOGLOBIN 9.8 g/dL (12.0-16.0); LYMPHOCYTES # (AUTO) 1.6 K/uL (1.0-4.8); LYMPHOCYTES % (AUTO) 9.6 % (22.0-44.0); MEAN CORPUSCULAR HEMOGLOBIN 32.8 pg (26.0-34.0); MEAN CORPUSCULAR HGB CONC 33.8 G/dL (31.0-37.0); MEAN CORPUSCULAR VOLUME 97 fL (80-100); MONOCYTES # (AUTO) 1.1 K/uL (0.1-1.0); MONOCYTES % (AUTO) 6.6 % (2.0-9.0); NEUTROPHILS # (AUTO) 14.1 K/uL (1.8-7.7); NEUTROPHILS % (AUTO) 83.7 % (40.0-70.0); PLATELET COUNT (AUTO) 231 K/uL (150-450); RED CELL DISTRIBUTION WIDTH 13.3 % (11.5-14.5)
[2017-06-03] MEDS: MethylPREDNISolone SOD SUCC 40 MG/ML VIAL IVP SCH ×2 (08:42→16:12)
[2017-06-03] MEDS: GABAPENTIN 300 MG CAPSULE PO SCH ×2 (08:42→20:17)
[2017-06-03] MEDS: ASPIRIN 325 MG TABLET PO SCH (08:43)
[2017-06-03] MEDS ORDERED: POTASSIUM CHLORIDE 20 MEQ ER TABLET PO PRN ×2 (09:00)
[2017-06-03 09:40] LABS: DIGOXIN 0.55 ng/mL (0.90-2.00)
[2017-06-03] MEDS: DIGOXIN 125 MCG TABLET PO SCH (09:58)
[2017-06-03] MEDS: ACETAMINOPHEN 325 MG TABLET PO PRN (12:57)
[2017-06-03] MEDS: HYDROCODONE/ACETAMINOPHEN 10-325 MG TABLET PO PRN ×2 (14:44→21:55)
[2017-06-03] MEDS: PROMETHAZINE HCL/CODEINE 6.25-10MG/5ML SYRUP UDCUP PO PRN ×2 (16:12→21:56)
[2017-06-03] MEDS: SIMVASTATIN 10 MG TABLET PO SCH (20:17)
[2017-06-03] MEDS: ALPRAZolam 0.25 MG TABLET PO PRN (21:56)
[2017-06-04] VITALS: BP 97/45
[2017-06-04] MEDS: MethylPREDNISolone SOD SUCC 40 MG/ML VIAL IVP SCH ×4 (00:05→23:22)
[2017-06-04] MEDS: PIPERACILLIN/TAZO 3.375 GM/D5W 50 ML IV SCH ×4 (03:51→20:35)
[2017-06-04 04:40] VITALS: BP 100/70
[2017-06-04 07:23] LABS: EOSINOPHILS % (AUTO) 0.1 % (1.0-6.0); HEMATOCRIT 27.1 % (36-46); HEMOGLOBIN 9.3 g/dL (12.0-16.0); LYMPHOCYTES # (AUTO) 0.6 K/uL (1.0-4.8); LYMPHOCYTES % (AUTO) 7.1 % (22.0-44.0); MEAN CORPUSCULAR HEMOGLOBIN 32.6 pg (26.0-34.0); MEAN CORPUSCULAR HGB CONC 34.4 G/dL (31.0-37.0); MEAN CORPUSCULAR VOLUME 95 fL (80-100); MONOCYTES # (AUTO) 0.7 K/uL (0.1-1.0); NEUTROPHILS # (AUTO) 7.1 K/uL (1.8-7.7); NEUTROPHILS % (AUTO) 84.8 % (40.0-70.0); PLATELET COUNT (AUTO) 242 K/uL (150-450); RED BLOOD CELL COUNT(AUTO) 2.85 MIL/uL (4.00-5.20); RED CELL DISTRIBUTION WIDTH 13.4 % (11.5-14.5)
[2017-06-04 07:31] LABS: ALBUMIN 2.4 g/dL (3.4-5.0); BILIRUBIN,TOTAL 0.4 mg/dL (0.1-1.0); CALCIUM, TOTAL 8.5 mg/dL (8.8-10.5); CREATININE 1.12 mg/dL (0.60-1.30); MAGNESIUM 1.2 mg/dL (1.80-2.40); POTASSIUM 3.7 mmol/L (3.5-5.1); TOTAL PROTEIN, SERUM 6.5 g/dL (6.4-8.2)
[2017-06-04 07:35] VITALS: BP 98/58
[2017-06-04] MEDS ORDERED: MAGNESIUM SULFATE 4 GM/WATER 100 ML IV ONE (07:45)
[2017-06-04] MEDS: GABAPENTIN 300 MG CAPSULE PO SCH ×2 (08:33→20:33)
[2017-06-04] MEDS: ACETAMINOPHEN 325 MG TABLET PO PRN ×2 (08:33→14:34)
[2017-06-04] MEDS: PROMETHAZINE HCL/CODEINE 6.25-10MG/5ML SYRUP UDCUP PO PRN ×2 (08:33→22:41)
[2017-06-04] MEDS: ASPIRIN 325 MG TABLET PO SCH (08:33)
[2017-06-04] MEDS: DIGOXIN 125 MCG TABLET PO SCH (09:00)
[2017-06-04 11:52] VITALS: BP 97/63
[2017-06-04 16:21] VITALS: BP 95/60
[2017-06-04 19:18] VITALS: BP 135/79
[2017-06-04] MEDS: ALPRAZolam 0.25 MG TABLET PO PRN (20:33)
[2017-06-04] MEDS: SIMVASTATIN 10 MG TABLET PO SCH (20:33)
[2017-06-04] MEDS: HYDROCODONE/ACETAMINOPHEN 10-325 MG TABLET PO PRN (20:33)
[2017-06-04] MEDS ORDERED: SODIUM CHLORIDE 0.9% 250 ML IV ONE (20:37)
[2017-06-04] MEDS: DiphenhydrAMINE HCL 25 MG CAPSULE PO PRN (23:59)
[2017-06-05] VITALS (8 sets, daily range): BP systolic 102–138; BP diastolic 50–73
[2017-06-05] MEDS: ACETAMINOPHEN 325 MG TABLET PO PRN (01:46)
[2017-06-05] MEDS: HYDROCODONE/ACETAMINOPHEN 10-325 MG TABLET PO PRN ×3 (03:21→20:08)
[2017-06-05] MEDS: PIPERACILLIN/TAZO 3.375 GM/D5W 50 ML IV SCH ×4 (03:24→20:45)
[2017-06-05] MEDS: PROMETHAZINE HCL/CODEINE 6.25-10MG/5ML SYRUP UDCUP PO PRN ×2 (06:43→21:54)
[2017-06-05 08:25] LABS: CALCIUM, TOTAL 8.3 mg/dL (8.8-10.5); CREATININE 1.14 mg/dL (0.60-1.30)
[2017-06-05] MEDS: MethylPREDNISolone SOD SUCC 40 MG/ML VIAL IVP SCH ×3 (08:46→23:11)
[2017-06-05] MEDS: GABAPENTIN 300 MG CAPSULE PO SCH ×2 (08:46→20:08)
[2017-06-05] MEDS: ASPIRIN 325 MG TABLET PO SCH (08:46)
[2017-06-05] MEDS: DIGOXIN 125 MCG TABLET PO SCH (08:46)
[2017-06-05] MEDS: ALPRAZolam 0.25 MG TABLET PO PRN ×2 (08:46→20:46)
[2017-06-05] MEDS: ALBUTEROL SULFATE 2.5 MG/0.5 ML NEB SOLUTION NEB PRN (14:30)
[2017-06-05] MEDS: IPRATROPIUM BROMIDE 0.5 MG/2.5 ML NEB SOLUTION NEB PRN (14:30)
[2017-06-05] MEDS ORDERED: SODIUM CHLORIDE 0.9% 250 ML IV ONE (20:42)
[2017-06-05] MEDS: SIMVASTATIN 10 MG TABLET PO SCH (20:45)
[2017-06-06] MEDS: PIPERACILLIN/TAZO 3.375 GM/D5W 50 ML IV SCH ×4 (02:15→19:48)
[2017-06-06] MEDS: HYDROCODONE/ACETAMINOPHEN 10-325 MG TABLET PO PRN ×2 (02:19→15:18)
[2017-06-06] MEDS: PROMETHAZINE HCL/CODEINE 6.25-10MG/5ML SYRUP UDCUP PO PRN (03:35)
[2017-06-06 04:30] VITALS: BP 123/65
[2017-06-06 06:45] LABS: EOSINOPHILS % (AUTO) 0 % (1.0-6.0); HEMATOCRIT 31.7 % (36-46); HEMOGLOBIN 10.7 g/dL (12.0-16.0); LYMPHOCYTES % (AUTO) 9.4 % (22.0-44.0); MEAN CORPUSCULAR HEMOGLOBIN 32.5 pg (26.0-34.0); MEAN CORPUSCULAR HGB CONC 33.9 G/dL (31.0-37.0); MEAN CORPUSCULAR VOLUME 96 fL (80-100); MONOCYTES # (AUTO) 0.9 K/uL (0.1-1.0); MONOCYTES % (AUTO) 8.3 % (2.0-9.0); NEUTROPHILS # (AUTO) 9.1 K/uL (1.8-7.7); NEUTROPHILS % (AUTO) 82.3 % (40.0-70.0); PLATELET COUNT (AUTO) 322 K/uL (150-450); RED BLOOD CELL COUNT(AUTO) 3.31 MIL/uL (4.00-5.20); RED CELL DISTRIBUTION WIDTH 13.3 % (11.5-14.5)
[2017-06-06 07:07] LABS: CALCIUM, TOTAL 8.8 mg/dL (8.8-10.5); CREATININE 1.26 mg/dL (0.60-1.30); MAGNESIUM 1.7 mg/dL (1.80-2.40); POTASSIUM 3.8 mmol/L (3.5-5.1)
[2017-06-06 07:45] VITALS: BP 113/74
[2017-06-06] MEDS: GABAPENTIN 300 MG CAPSULE PO SCH ×2 (08:35→19:47)
[2017-06-06] MEDS: ASPIRIN 325 MG TABLET PO SCH (08:35)
[2017-06-06] MEDS: DIGOXIN 125 MCG TABLET PO SCH (08:35)
[2017-06-06] MEDS: MethylPREDNISolone SOD SUCC 40 MG/ML VIAL IVP SCH (08:35)
[2017-06-06] MEDS: ALPRAZolam 0.25 MG TABLET PO PRN (08:42)
[2017-06-06 11:42] VITALS: BP 106/74
[2017-06-06] MEDS: DiphenhydrAMINE HCL 25 MG CAPSULE PO PRN (14:33)
[2017-06-06 15:35] VITALS: BP 118/77
[2017-06-06] MEDS: SIMVASTATIN 10 MG TABLET PO SCH (19:47)
[2017-06-06] MEDS: PredniSONE 10 MG TABLET PO SCH (19:47)
[2017-06-06 20:05] VITALS: BP 103/67
[2017-06-06 23:33] VITALS: BP 102/51
[2017-06-07] MEDS: ALPRAZolam 0.25 MG TABLET PO PRN ×2 (00:11→09:24)
[2017-06-07] MEDS: PROMETHAZINE HCL/CODEINE 6.25-10MG/5ML SYRUP UDCUP PO PRN (00:11)
[2017-06-07] MEDS: PIPERACILLIN/TAZO 3.375 GM/D5W 50 ML IV SCH ×2 (02:05→09:23)
[2017-06-07 04:38] VITALS: BP 98/59
[2017-06-07 07:16] VITALS: BP 109/64
[2017-06-07] MEDS: GABAPENTIN 300 MG CAPSULE PO SCH (09:23)
[2017-06-07] MEDS: PredniSONE 10 MG TABLET PO SCH (09:23)
[2017-06-07] MEDS: ASPIRIN 325 MG TABLET PO SCH (09:24)
[2017-06-07] MEDS: DIGOXIN 125 MCG TABLET PO SCH (09:24)
[2017-06-07] MEDS: HYDROCODONE/ACETAMINOPHEN 10-325 MG TABLET PO PRN (09:28)
[2017-06-07] MEDS ORDERED: PRED20 PO (10:10)
[2017-06-07] MEDS ORDERED: LEVO500 PO (10:16)
== END 2017-06-07 10:46 | disposition home or self-care (01) | DRG 871 ==
LOC: EMS 12:20 → AHU 06-02 10:09 → 5N 06-02 18:55 → 6N 06-05 18:54
PROVIDERS: ADMIT Family Medicine; ATTEND Family Medicine
DX: A41.9 Sepsis, unspecified organism (principal); J96.00 Acute respiratory failure, unspecified whether with hypoxia or hypercapnia; I11.0 Hypertensive heart disease with heart failure; I50.9 Heart failure, unspecified; J18.9 Pneumonia, unspecified organism; I48.91 Unspecified atrial fibrillation; E78.5 Hyperlipidemia, unspecified; G89.4 Chronic pain syndrome; M19.90 Unspecified osteoarthritis, unspecified site; F41.9 Anxiety disorder, unspecified; F17.210 Nicotine dependence, cigarettes, uncomplicated; F32.9 Major depressive disorder, single episode, unspecified; J06.9 Acute upper respiratory infection, unspecified; I25.10 Atherosclerotic heart disease of native coronary artery without angina pectoris; Z91.041 Radiographic dye allergy status; Z79.82 Long term (current) use of aspirin; Z79.899 Other long term (current) drug therapy; Z98.891 History of uterine scar from previous surgery
CPT/HCPCS: 71046; 83605; 83735; 84132; 87040; 87086; 87804; 90471; 93005; 93306; 94640; 94644; 96365; 96375; 99285; J1200; J1885; J1956; J2543; J2765; J2920; J2930; J3475; J7030; J7040; J7050

== ENCOUNTER 2018-01-20 09:15 | Emergency (ER) | payer BC, OTHER ==
[~2018-01-20] VITALS: Ht 157.5 cm; Wt 54.5 kg
[~2018-01-20 09:15] MED LIST changes: -ACET-784 PO; -ALBU8.5H3 IH; -ALBU8.5H8 IH; -ALPR0.5T8 PO; -AMIO200T44 PO; -CEFT1PB IV; +DIGO-44 PO; -DIGO125T PO; -HYDR-3971 PO; -MIDO5TAB23 PO; -MONT10TA21 PO; -PARO10TA71 PO; -PARO10TA89 PO; -TIOT185 IH; -TIZA4TAB4 PO; -ZOLP10TA7 PO
[2018-01-20] MEDS ORDERED: ALBUTEROL SULFATE 2.5 MG/0.5 ML NEB SOLUTION NEB ONE (09:45)
[2018-01-20] MEDS ORDERED: ASPIRIN 81 MG CHEWABLE TABLET PO ONE (09:45)
[2018-01-20] MEDS ORDERED: ACETAMINOPHEN 500 MG TABLET PO ONE (09:45)
[2018-01-20] MEDS ORDERED: IPRATROPIUM BROMIDE 0.5 MG/2.5 ML NEB SOLUTION NEB ONE (09:45)
[2018-01-20 10:31] LABS: BASOPHILS % (AUTO) 0.6 % (0.0-2.0); EOSINOPHILS % (AUTO) 2.4 % (1.0-6.0); HEMATOCRIT 35.5 % (36-46); HEMOGLOBIN 11.9 g/dL (12.0-16.0); LYMPHOCYTES # (AUTO) 1.8 K/uL (1.0-4.8); LYMPHOCYTES % (AUTO) 49.6 % (22.0-44.0); MEAN CORPUSCULAR HEMOGLOBIN 32.8 pg (26.0-34.0); MEAN CORPUSCULAR HGB CONC 33.5 G/dL (31.0-37.0); MEAN CORPUSCULAR VOLUME 98 fL (80-100); MONOCYTES # (AUTO) 0.5 K/uL (0.1-1.0); MONOCYTES % (AUTO) 13.9 % (2.0-9.0); NEUTROPHILS # (AUTO) 1.2 K/uL (1.8-7.7); NEUTROPHILS % (AUTO) 33.5 % (40.0-70.0); PLATELET COUNT (AUTO) 97 K/uL (150-450); RED BLOOD CELL COUNT(AUTO) 3.62 MIL/uL (4.00-5.20); RED CELL DISTRIBUTION WIDTH 12.9 % (11.5-14.5)
[2018-01-20 10:42] LABS: ANION GAP 11 mmol/L (8-16); CARBON DIOXIDE 26 mmol/L (22-29); CHLORIDE 102 mmol/L (98-107); CREATININE 0.74 mg/dL (0.60-1.30); GLOMERULAR FILTR. RATE CALC > 60 mL/min (>60); GLUCOSE,RANDOM 79 mg/dL (70-110); POTASSIUM 3.6 mmol/L (3.5-5.1); SODIUM SERUM 139 mmol/L (136-145); UREA NITROGEN, BLOOD 15 mg/dL (7-18)
[2018-01-20 10:54] LABS: B-TYPE NATRIURETIC PEPTIDE 50 pg/mL (0-100)
[2018-01-20 11:06] LABS: ALANINE AMINOTRANSFERASE 62 U/L (12-78); ALKALINE PHOSPHATASE 157 U/L (46-116); ASPARTATE AMINOTRANSFERASE 153 U/L (15-37); BILIRUBIN,TOTAL 0.9 mg/dL (0.1-1.0); CREATINE KINASE MB 2.1 ng/mL (0-5); CREATINE KINASE, TOTAL 167 U/L (26-192); TOTAL PROTEIN, SERUM 8.7 g/dL (6.4-8.2)
[2018-01-20] MEDS ORDERED: KETOROLAC TROMETHAMINE 30 MG/ML VIAL IVP ONE (15:45)
[2018-01-20 18:22] VITALS: BP 132/74
== END 2018-01-20 18:25 | disposition short-term general hospital (02) ==
LOC: EMS 09:17
DX: S40.012A Contusion of left shoulder, initial encounter (principal); J44.9 Chronic obstructive pulmonary disease, unspecified; R00.2 Palpitations; I48.91 Unspecified atrial fibrillation; F41.9 Anxiety disorder, unspecified; I11.9 Hypertensive heart disease without heart failure; E78.00 Pure hypercholesterolemia, unspecified; M19.90 Unspecified osteoarthritis, unspecified site; F17.210 Nicotine dependence, cigarettes, uncomplicated; Z91.041 Radiographic dye allergy status; Z79.82 Long term (current) use of aspirin; X58.XXXA Exposure to other specified factors, initial encounter; Y93.89 Activity, other specified; Y92.89 Other specified places as the place of occurrence of the external cause; Y99.8 Other external cause status
CPT/HCPCS: 36415; 71045; 80053; 82550; 82553; 83880; 84484; 85025; 93005; 94640; 96374; 99285; G0480; J1885